=== PATIENT | female | born 1955 | race Caucasian/White ===

== ENCOUNTER 2021-08-03 22:31 | Emergency (ER) | payer OTHER ==
[~2021-08-03] VITALS: Ht 170.2 cm; Wt 73.0 kg
--- NOTE | 2021-08-03 23:22 | PHYS DOC ---
Past History Past Surgical History: Tonsillectomy General Adult EDM: Chief Complaint: HAND PROBLEM HPI: HPI: "... Melyssa and Carlin got into it... Usually they get along fine..Melyssa the dog.... And Carlin is the cat ... I went to separate them... I grabbed Melyssa ..bu the collar... but the cat got my left hand..as she was attacking him...."..." I would not have come in.. but it would not stop bleeding..." Patient is a 65 year old female who presents with above hx and complaints of Rt. hand injury. Patient was her dog and cat that were in a active fight. Patient received scratches or bites to left hand. Patient has what appears to be puncture martel and scratches some which apparently have punctured veins on the dorsal side of left hand. There is ecchymosis and swelling. Distal neurovascular intact. There is pain in opening and closing hand. Patient does not remember her last tetanus but thinks it is in excess of 10 years. Patient has no history immunosuppression. The cat has not had any up-to-date in vaccinations. Cat is completely indoors. Cat has been acting normally. Cat has not appeared to be ill. Patient is left-hand dominant. Pt.follows [facility] Dr. Villalobos. Review of Systems: Review of Systems: Constitutional: Denies fever or chills Eyes: Denies change in visual acuity HENT: Denies nasal congestion or sore throat Respiratory: Denies cough or shortness of breath Cardiovascular: Denies chest pain or edema GI: Denies abdominal pain, nausea, vomiting, bloody stools or diarrhea : Denies dysuria Musculoskeletal: Denies back pain or joint pain Integument: Complains of cat bite/cat scratches to left hand Neurologic: Denies headache, focal weakness or sensory changes Endocrine: Denies polyuria or polydipsia Lymphatic: Denies swollen glands Psychiatric: Denies depression or anxiety Family History: Family History: Noncontributory to presentation Current Medications: Current Meds: See nursing for home meds Allergies: Allergies: Penicillins cause rash Physical Exam: PE: Constitutional: Moderate acute distress, non-toxic appearance. [] HENT: Normocephalic, atraumatic, bilateral external ears normal, oropharynx moist, no oral exudates, nose normal. [] Eyes: PERRLA, EOMI, conjunctiva normal, no discharge. [] Neck: Normal range of motion, no tenderness, supple, no stridor. [] Cardiovascular:Heart rate regular rhythm, no murmur [] Lungs & Thorax: Bilateral breath sounds clear to auscultation [] Abdomen: Bowel sounds normal, soft, no tenderness, no masses, no pulsatile masses. [] Skin: Warm, dry, no erythema, no rash. Set findings in left hand Back: No tenderness, no CVA tenderness. [] Extremities: No tenderness, no cyanosis, no clubbing, ROM intact, no edema. [] Neurologic: Alert and oriented X 3, normal motor function, normal sensory function, no focal deficits noted. [] Psychologic: Affect anxious,, judgement normal, mood normal. [] Current Patient Data: Vital Signs: Vital Signs Date Time Temp Pulse Resp B/P (MAP) Pulse Ox O2 Delivery O2 Flow Rate FiO2 08/03/21 22:56 68 20 159/95 (116 98 Room Air EKG: EKG: [] Radiology/Procedures: Radiology/Procedures: [][place] [address] IMAGING REPORT Signed PATIENT: GAY ALEJANDRO ACCOUNT: [id number] : 1955 LOCATION: ER AGE: 65 SEX: F EXAM STATUS: REG ER ORD. PHYSICIAN: VICTOR MANUEL CARR MD REASON: cat bite, scratch PROCEDURE: HAND LEFT 3V XR HAND_LEFT 3 VIEWS History: Reason: cat bite, scratch / Spl. Instructions: / History: Technique: 3 views left hand. Comparison: None. Findings: No dislocation. No acute fracture. No radiographic evidence of osteomyelitis. No radiopaque foreign body. Advanced first carpal metacarpal triscaphe DJD. Mild additional particular degenerative changes involving the distal phalangeal and metacarpal phalangeal joints. Dorsal hand soft tissue swelling. No subcutaneous gas. Impression: 1. No acute osseous abnormality. 2. Dorsal hand soft tissue swelling. 3. 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 Electronically signed by: Bert Heredia DO (08/04/2021 12:15 AM) [facility] DICTATED AND SIGNED BY: BERT HEREDIA DO DATE: 08/04/21 0013 CC: MONICA VILLALOBOS MD; VICTOR MANUEL CARR MD ~MTH0 0 Heart Score: C/O Chest Pain: N/A Risk Factors: Risk Factors: DM, Current or recent (<one month) smoker, HTN, HLP, family history of CAD, obesity. Risk Scores: Score 0 - 3: 2.5% MACE over next 6 weeks - Discharge Home Score 4 - 6: 20.3% MACE over next 6 weeks - Admit for Clinical Observation Score 7 - 10: 72.7% MACE over next 6 weeks - Early Invasive Strategies Course & Med Decision Making: Course & Med Decision Making Pertinent Labs and Imaging studies reviewed. (See chart for details)\\ Patient to soak hand in warm salt water or Epson salts 4 times a day. Then massage puncture and scratch martel with Polysporin after soaking 4 times a day. Patient is take doxycycline 100 mg twice a day. Patient follow-up primary care. Monitor closely for signs of infection or increased disability. Take Tylenol and ibuprofen for pain. Return if any concerns. Recommend cat be confined for observation x 10 days. Make a report to law enforcement. Monitoring the cats health would be the greatest indication for infection such as rabies. Impression: 1. Cat bite / scratch [] Dragon Disclaimer: Dragon Disclaimer: This electronic medical record was generated, in whole or in part, using a voice recognition dictation system. Departure Departure: Referrals: MONICA VILLALOBOS MD (PCP) Scripts Doxycycline Hyclate (DOXYCYCLINE HYCLATE) 100 Mg Tablet 100 MG PO BID for cat scratch for 10 Days, #20 TAB Prov: VICTOR MANUEL CARR MD 08/03/21 Dragon Disclaimer This chart was dictated in whole or in part using Voice Recognition software in a busy, high-work load, and often noisy Emergency Department environment. It may contain unintended and wholly unrecognized errors or omissions. Dragon Disclaimer This chart was dictated in whole or in part using Voice Recognition software in a busy, high-work load, and often noisy Emergency Department environment. It may contain unintended and wholly unrecognized errors or omissions. VICTOR MANUEL CARR MD Aug 03, 2021 23:22
[2021-08-03] MEDS ORDERED: BACITRACIN ZINC TOPICAL OINT PACKET. TP ONE (23:30)
[2021-08-03] MEDS ORDERED: DOXYCYCLINE HYCLATE 100 MG TABLET PO ONE (23:30)
[2021-08-03] MEDS ORDERED: DIPH,PERTUSS(ACELL),TET VAC/PF 0.5 ML SYRINGE. VAX IM ONE ×2 (23:30→23:43)
[2021-08-03] MEDS ORDERED: DOXY100T PO (23:38)
[2021-08-03] MEDS ORDERED: DOXYCYCLINE HYCLATE 100 MG TABLET ONE (23:43)
--- NOTE | 2021-08-04 00:17 | RAD ---
XR HAND_LEFT 3 VIEWS History: Reason: cat bite, scratch / Spl. Instructions: / History: Technique: 3 views left hand. Comparison: None. Findings: No dislocation. No acute fracture. No radiographic evidence of osteomyelitis. No radiopaque foreign b ab. Advanced first carpal metacarpal triscaphe DJD. Mild additional particular degenerative changes involving the distal phalangeal and metacarpal phalangeal joints. Dorsal hand soft tissue swelling. N o subcutaneous gas. Impression: 1. No acute osseous abnormality. 2. Dorsal hand soft tissue swelling. 3. 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 Electronically signed by: Bert Heredia DO (08/04/2021 12:15 AM) [facility]
[2021-08-04 00:55] VITALS: BP 138/72
== END 2021-08-04 00:57 | disposition home or self-care (01) ==
LOC: ER 22:31
DX: S60.512A Abrasion of left hand, initial encounter (principal); Z90.89 Acquired absence of other organs; W55.01XA Bitten by cat, initial encounter; Y93.89 Activity, other specified; Y92.89 Other specified places as the place of occurrence of the external cause; Y99.8 Other external cause status
CPT/HCPCS: 73130; 90471; 90715; 99283-25